=== PATIENT | male | born 1945 | race Caucasian/White ===

== ENCOUNTER 2024-04-05 08:40 | Day surgery (SDC) | payer OTHER ==
[~2024-04-05] VITALS: Ht 182.9 cm; Wt 98.8 kg
[~2024-04-05 08:40] MED LIST: AMLO5 PO; ATOR20 PO; ELIQUIS5 M2 PO; FURO20 PO; FentaNYL Citrate 50 MCG/ML 2 ML Injection ONE; LISI20 PO; LORA10ER PO; Lidocaine HCl/Pf 1% 5 ML VIAL ONE; METO50 PO; POTA10T PO; TADA10TA PO; TAMS.4ER PO; propofoL 0 ML IV ONE
[2024-04-05] MEDS ORDERED: Lactated Ringer's 1,000 ML IV ONE ×2 (08:46→09:22)
[2024-04-05] MEDS ORDERED: CeFAZolin Sodium 2,000 MG VIAL ONE (09:51)
--- NOTE | 2024-04-05 10:25 | NUR ---
04/05/24 1025 JOSIE MELVIN PT HR PACING AT 50 DR LOPEZ REQUESTED [facility] WANDA QUINTEROS'S TO CONFIRM WHAT HIS PACE MAKER IS SET TO PACE AT. BAR VARMA CALLED AND REPORTED TO DR LOPEZ.
[2024-04-05 10:52] VITALS: BP 105/60
== END 2024-04-05 11:09 | disposition home or self-care (01) ==
LOC: ORSCSDS 08:40
PROVIDERS: Orthopaedic Surgery
PROC: 0LN80ZZ Release Left Hand Tendon, Open Approach (ICD-10-PCS; principal; 2024-04-05 10:00)
DX: M65.332 Trigger finger, left middle finger (principal); I48.91 Unspecified atrial fibrillation; G47.33 Obstructive sleep apnea (adult) (pediatric); F43.10 Post-traumatic stress disorder, unspecified; I10 Essential (primary) hypertension; Z95.0 Presence of cardiac pacemaker; E78.5 Hyperlipidemia, unspecified; Z79.899 Other long term (current) drug therapy
CPT/HCPCS: J0690; J2001; J2704; J3010; J7120

== ENCOUNTER → 2025-05-23 | Outpatient (CLI) | payer OTHER ==
[~2025-05-23] MED LIST changes: -FentaNYL Citrate 50 MCG/ML 2 ML Injection ONE; -Lidocaine HCl/Pf 1% 5 ML VIAL ONE; -propofoL 0 ML IV ONE
[2025-05-23 16:50] LABS: Microalbumin, Urine Quant. 31.7 mg/L (0.000-20.000); Protein, Urine Quantitative 10.7 mg/dL (0.0-11.9)
== END | disposition home or self-care (01) ==
LOC: LAB 13:47 → LAB SHORT 13:47 → LAB FUT 05-21 09:20
PROVIDERS: Internal Medicine Nephrology
DX: N18.30 Chronic kidney disease, stage 3 unspecified (principal); D63.1 Anemia in chronic kidney disease; N25.81 Secondary hyperparathyroidism of renal origin; E55.9 Vitamin D deficiency, unspecified; G60.9 Hereditary and idiopathic neuropathy, unspecified; D51.8 Other vitamin B12 deficiency anemias; D52.8 Other folate deficiency anemias; D50.9 Iron deficiency anemia, unspecified; E78.00 Pure hypercholesterolemia, unspecified; N40.1 Benign prostatic hyperplasia with lower urinary tract symptoms; R76.9 Abnormal immunological finding in serum, unspecified; R94.5 Abnormal results of liver function studies; R94.6 Abnormal results of thyroid function studies
CPT/HCPCS: 81050; 82043; 82570; 84156